=== PATIENT | female | born 1980 | race Hispanic/Latino ===

== ENCOUNTER 2017-07-02 22:59 | Emergency (ER) | payer OTHER ==
[2017-07-03] MEDS ORDERED: IBUPROFEN 600 MG TABLET ONE (01:39)
[2017-07-03] MEDS ORDERED: AZITHROMYCIN 250 MG TABLET PO ONE (02:48)
[2017-07-03] MEDS ORDERED: OSELTAMIVIR PHOSPHATE 75 MG CAP ONE (02:49)
== END 2017-07-03 03:03 | disposition home or self-care (01) ==
LOC: EDH 22:59
DX: J09.X2 Influenza due to identified novel influenza A virus with other respiratory manifestations (principal); J10.1 Influenza due to other identified influenza virus with other respiratory manifestations
CPT/HCPCS: 87804

== ENCOUNTER 2018-02-18 03:55 | Emergency (ER) | payer OTHER ==
[2018-02-18] MEDS ORDERED: LIDOCAINE HCL 2% VISCOUS 15 ML UDCUP ONE (04:54)
[2018-02-18 05:15] LABS: RAPID GROUP A STREP POSITIVE (NEGATIVE)
[2018-02-18] MEDS ORDERED: DEXAMETHASONE SOD PHOSPHATE 10MG/ML 1ML VIAL ONE (06:04)
[2018-02-18] MEDS ORDERED: PEN G BENZ/PEN G PROCAINE 1,200,000 UNIT/2 ML ML IM ONE (06:05)
== END 2018-02-18 06:21 | disposition home or self-care (01) ==
LOC: EDH 03:55
DX: J02.0 Streptococcal pharyngitis (principal); T18.108A Unspecified foreign body in esophagus causing other injury, initial encounter; X58.XXXA Exposure to other specified factors, initial encounter; Y93.89 Activity, other specified; Y92.89 Other specified places as the place of occurrence of the external cause; Y99.8 Other external cause status
CPT/HCPCS: 70360; 87804 ×2; 87880; 96372; 99285; J0558; J1100

== ENCOUNTER 2018-03-31 10:43 | Emergency (ER) | payer OTHER ==
[2018-03-31] MEDS ORDERED: METOCLOPRAMIDE 10 MG/2 ML VIAL ONE (11:34)
[2018-03-31] MEDS ORDERED: ASPIRIN 325 MG TABLET ONE (11:35)
[2018-03-31] MEDS ORDERED: LACTATED RINGERS 1000ML 1,000 ML IV ONE (11:35)
[2018-03-31 11:41] LABS: BASOPHILS % (AUTO) 0.7 % (0.0-5.0); EOSINOPHILS % (AUTO) 1.1 % (0.0-8.0); HEMATOCRIT 40.3 % (36-48); MEAN CORPUSCULAR HEMOGLOBIN 30.6 pg (27.0-33.0); MEAN CORPUSCULAR HGB CONC 33.7 g/dL (32.0-36.0); MONOCYTES % (AUTO) 13.1 % (3.0-13.0); NEUTROPHILS % (AUTO) 44.1 % (40.0-77.0); PLATELET COUNT (AUTO) 268 K/uL (130-400); RED BLOOD CELL COUNT(AUTO) 4.43 MIL/uL (4.00-5.50); RED CELL DISTRIBUTION WIDTH 13.1 % (11.0-15.5); WHITE BLOOD COUNT (AUTO) 5.7 K/uL (4.8-10.8)
[2018-03-31 11:50] LABS: CREATININE 0.8 mg/dL (0.5-1.5)
[2018-03-31 11:54] LABS: ALBUMIN 3.5 g/dL (3.5-5.0); BILIRUBIN,TOTAL 0.4 mg/dL (0.2-1.0); CRP QUANTITATIVE 11.3 mg/L (0.00-9.0); TOTAL PROTEIN, SERUM 8.4 g/dL (6.0-8.3)
[2018-03-31 12:11] LABS: INR 0.99 (0.85-1.15); PARTIAL THROMBOPLASTIN TIME 28.7 SEC (26.3-35.5); PROTHROMBIN TIME 10.4 SEC (9.6-11.6)
== END 2018-03-31 13:30 | disposition home or self-care (01) ==
LOC: EDH 10:43
DX: R55 Syncope and collapse (principal); G44.209 Tension-type headache, unspecified, not intractable; R00.2 Palpitations; Z98.51 Tubal ligation status
CPT/HCPCS: 36415; 71045; 80053; 81025; 82550; 84484; 85025; 85378; 85610; 85730; 86140; 93005; 96361; 96374; 99284; J2765; J7120

== ENCOUNTER 2023-04-13 15:27 | Emergency (ER) | payer OTHER ==
[~2023-04-13] VITALS: Ht 162.6 cm; Wt 77.1 kg
[2023-04-13 16:19] LABS: ADD UA MICROSCOPIC YES; APPEARANCE,URINE CLEAR (CLEAR); BILIRUBIN,URINE NEGATIVE (NEGATIVE); COLOR,URINE LIGHT-YELLOW (YELLOW); GLUCOSE, URINE (UA) NEGATIVE (NEGATIVE); KETONES,URINE NEGATIVE (NEGATIVE); LEUKOCYTE ESTERASE ,URINE 250 Leu/uL (NEGATIVE); NITRATE,URINE NEGATIVE (NEGATIVE); PH,URINE 5.5 (5.0-8.0); PROTEIN,URINE NEGATIVE (NEGATIVE); UROBILINOGEN,URINE 0.2 mg/dL (0.2-1.0)
[2023-04-13 16:25] LABS: HCG,QUALITATIVE URINE NEGATIVE (NEGATIVE)
[2023-04-13 16:27] LABS: BACTERIA,URINE RARE /HPF (None Seen); MUCUS,URINE FEW LPF (None Seen); RBC,URINE 0-1 /HPF (0-1); SQUAMOUS EPITHELIAL CELL,UR FEW /HPF (0-2)
[2023-04-13 16:44] LABS: BASOPHILS # (AUTO) 0.01 K/uL (0.00-0.20); BASOPHILS % (AUTO) 0.2 % (0.0-5.0); HEMATOCRIT 37.9 % (36-48); IMMATURE GRANULOCYTE ABSOLUTE 0.02 K/uL (0-1); LYMPHOCYTES # (AUTO) 0.9 K/uL (1.0-4.8); MEAN CORPUSCULAR HEMOGLOBIN 30.8 pg (27.0-33.0); MEAN CORPUSCULAR HGB CONC 34.8 g/dL (32.0-36.0); MEAN CORPUSCULAR VOLUME 88.3 fL (79-99); MONOCYTES # (AUTO) 0.6 K/uL (0.1-1.0); MONOCYTES % (AUTO) 9.8 % (3.0-13.0); NEUTROPHILS # (AUTO) 4.9 K/uL (1.8-7.7); NEUTROPHILS % (AUTO) 75.7 % (40.0-77.0); PLATELET COUNT (AUTO) 229 K/uL (130-400); RED BLOOD CELL COUNT(AUTO) 4.29 MIL/uL (4.00-5.50); RED CELL DISTRIBUTION WIDTH 12.3 % (11.0-15.5); WHITE BLOOD COUNT (AUTO) 6.5 K/uL (4.8-10.8)
[2023-04-13 16:56] LABS: CREATININE 0.7 mg/dL (0.5-1.5); POTASSIUM 3.2 mmol/L (3.5-5.1)
[2023-04-13 17:02] LABS: ALBUMIN 3.4 g/dL (3.5-5.0); BILIRUBIN,TOTAL 0.4 mg/dL (0.2-1.0); TOTAL PROTEIN, SERUM 8.2 g/dL (6.0-8.3)
[2023-04-13] MEDS ORDERED: ONDANSETRON 4MG INJ IVP ONE (18:30)
[2023-04-13] MEDS ORDERED: FAMOTIDINE 20MG TAB PO ONE (18:30)
[2023-04-13] MEDS ORDERED: LACTATED RINGERS 1000ML 1,000 ML IV ONE (18:30)
[2023-04-13] MEDS ORDERED: KETOROLAC 30MG VIAL (30MG/ML) ONE (20:34)
[2023-04-13] MEDS ORDERED: KETOROLAC 30MG VIAL (30MG/ML) IVP ONE ×2 (21:00)
[2023-04-13] MEDS ORDERED: CEFTRIAXONE 1G VIAL IVPB ONE (21:00)
[2023-04-13] MEDS ORDERED: 0.9%NACL 1000ML 1,000 ML IV ONE (21:00)
[2023-04-13] MEDS ORDERED: CEPH500B PO (21:19)
[2023-04-13] MEDS ORDERED: ACET-66 PO (21:19)
[2023-04-13 21:22] VITALS: BP 135/76; PULSE 72; RESP 16; O2SAT 99
== END 2023-04-13 21:29 | disposition home or self-care (01) ==
LOC: EDH 15:27
DX: N39.0 Urinary tract infection, site not specified (principal); Z98.890 Other specified postprocedural states
CPT/HCPCS: 99285; 74176; 96374; 96361; 96375; 80053; 83690; 85025; 87088; 81001; 81025; 36415; J0696; J2405; J1885